=== PATIENT | female | born 1940 | race Caucasian/White ===

== ENCOUNTER 2017-04-26 14:55 | Emergency (ER) | payer MEDICARE ==
[~2017-04-26] VITALS: Ht 147.3 cm; Wt 114.3 kg
== END 2017-04-26 15:43 | disposition home or self-care (01) ==
LOC: SED 14:55
DX: I82.432 Acute embolism and thrombosis of left popliteal vein (principal); I10 Essential (primary) hypertension
CPT/HCPCS: 93971; 99283